=== PATIENT | female | born 1955 | race Caucasian/White ===

== ENCOUNTER 2016-08-26 12:33 | Inpatient (IN) | payer OTHER ==
[~2016-08-26] VITALS: Ht 166.4 cm; Wt 68.2 kg
[2016-08-31] MEDS ORDERED: ALPR.5 PO (12:18)
[2016-08-31] MEDS ORDERED: MULTTAB67 PO (12:18)
[2016-08-31] MEDS ORDERED: LISI-515 PO (12:18)
[2016-08-31] MEDS ORDERED: CALC1TAB12 PO (12:18)
[2016-08-31] MEDS ORDERED: HYDR-3366 PO (12:18)
[2016-08-31] MEDS ORDERED: VENL75TA PO (12:18)
[2016-08-31] MEDS ORDERED: GABA300C5 PO ×2 (12:18)
[2016-09-07] MEDS ORDERED: PHENYLEPH/NS 1000 MCG/10 ML SYR IV ONE (12:17)
[2016-09-07] MEDS ORDERED: LACTATED RINGER'S 1000 ML INJ 1,000 ML IV ONE (12:17)
[2016-09-07] MEDS ORDERED: NEOSTIGMINE 3 MG/3 ML SYR IV ONE (12:17)
[2016-09-07] MEDS ORDERED: ePHEDrine/NS 25 MG/5 ML SYR IV ONE (12:17)
[2016-09-07] MEDS ORDERED: PROPOFOL 200 MG/20 ML AMP IV ONE (12:17)
[2016-09-07 12:51] VITALS: BP 153/87; PULSE 90; RESP 16; TEMP 97.7; O2SAT 98
[2016-09-07] MEDS ORDERED: SODIUM CHLOR 0.9% 250 ML INJ 250 ML ONE (12:52)
[2016-09-07] MEDS ORDERED: VANCOMYCIN HCL 1000 MG VIAL ONE (12:52)
[2016-09-07] MEDS ORDERED: ceFAZolin 2 GM PREMIX 50 ML IV SCH (13:15)
[2016-09-07] MEDS: CHLORHEXIDINE GLUCONATE 4% SOLN 120 ML BTL TOP SCH (13:15)
[2016-09-07] MEDS ORDERED: GENTAMICIN SULFATE 80 MG/2 ML VIAL ONE (13:19)
[2016-09-07] MEDS: VANCOMYCIN 1000 MG/NS 250 ML (for <70 kg) IV SCH ×4 (13:25→13:26)
[2016-09-07] MEDS ORDERED: RESP: ALBUTEROL 2.5 MG/3 ML NEB (PRN) ONE (14:14)
[2016-09-07] MEDS ORDERED: MIDAZOLAM HCL 2 MG/2 ML VIAL ONE ×2 (14:20→16:58)
[2016-09-07] MEDS ORDERED: ACETAMINOPHEN 1000 MG/100 ML VIAL IV ONE (14:20)
[2016-09-07] MEDS ORDERED: FAMOTIDINE 20 MG/2 ML VIAL ONE (14:20)
[2016-09-07] MEDS ORDERED: fentaNYL CITRATE 250 MCG/5 ML AMP ONE ×3 (14:21→15:16)
[2016-09-07] MEDS ORDERED: ONDANSETRON HCL 4 MG/2 ML VIAL ONE (14:21)
[2016-09-07] MEDS ORDERED: HYDROmorphone HCL PF 2 MG/ML VIAL ONE (15:16)
[2016-09-07] MEDS ORDERED: KETAMINE HCL 500 MG/5 ML VIAL ONE (15:37)
[2016-09-07] MEDS: LACTATED RINGER'S 1000 ML INJ 1,000 ML IV SCH ×2 (16:26→21:14)
[2016-09-07] MEDS ORDERED: SODIUM CHLORIDE 0.9% FLUSH 5 ML FLUSH IVF PRN (16:30)
[2016-09-07] MEDS ORDERED: MORPHINE SULFATE 8 MG/ML INJ IM PRN (16:30)
[2016-09-07] MEDS ORDERED: ONDANSETRON HCL 4 MG/2 ML VIAL IVP PRN (16:30)
[2016-09-07] MEDS ORDERED: ALUMINUM/MAGNESIUM/SIMETH 30 ML CUP PO PRN (16:30)
[2016-09-07] MEDS ORDERED: ZOLPIDEM TARTRATE 5 MG TAB PO PRN (16:30)
[2016-09-07] MEDS ORDERED: Post-op Orders (for Pharmacy) MISC XX ONE (16:30)
[2016-09-07] MEDS ORDERED: ACETAMINOPHEN/HYDROcodone 325 MG/10 MG TAB PO PRN (16:30)
[2016-09-07] MEDS ORDERED: WALKER WHEELS/F1 MIS (16:32)
[2016-09-07] MEDS ORDERED: BEDSIDE COMMODE1 MI1 (16:32)
[2016-09-07] MEDS ORDERED: DO NOT ADM ANY ANTICOAGULANT DRUGS XX PRN (16:36)
--- NOTE | 2016-09-07 16:36 | HHI.PR ---
Immediate Post Op Note Procedure Date: Sep 07, 2016 Pre Op Diagnosis: R Hip Severe OA,Acet Dysplasia Post Op Diagnosis: Same Surgeon: Jalen Bernal MD Rn Training(s): Vanessa Hylton PA-C Procedure: R THR Complications: None Specimen(s) removed: None Estimated blood loss: 400 cc Anesthesia: General Drains: None Patient to: PACU Patient Condition: Good Implant/Devices: SEE IMPLANT LOG (if applicable) Date/Time of Procedure: SEE SURGICAL CARE RECORD Jalen Bernal MD Sep 07, 2016 16:36
[2016-09-07] MEDS: PCA - TOTAL MG MORPHINE DELIVERED PER SHIFT SCH ×2 (16:45→22:00)
[2016-09-07] MEDS ORDERED: NALOXONE HCL 0.4 MG/ML AMP IV PRN (16:45)
[2016-09-07] MEDS ORDERED: *morphine SULFATE 8 MG/ML PERIprocedure ONLY ONE (17:09)
--- NOTE | 2016-09-07 17:24 | RADRPT ---
EXAM DATE/TIME: 09/07/2016 16:34 [place] COMPARISON: No previous studies available for comparison. INDICATIONS : Post right hip arthroplasty MEDICAL HISTORY : None. SURGICAL HISTORY : None. ENCOUNTER: Initial ACUITY: 1 day PAIN SCORE: Non-responsive. LOCATION: Right Hip FINDINGS: A lateral view of the right hip with AP pelvis was obtained. Postsurgical changes following right hip replacement are noted. Acetabular and femoral components are satisfactorily aligned and well seated. There is no subacute fracture. There is less bony pelvis is intact. CONCLUSION: Satisfactory postoperative appearance of the right hip status post replacement. Nick Borja MD on September 07, 2016 at 17:21 Board Certified Radiologist. This report was verified electronically.
[2016-09-07] MEDS: MORPHINE SULFATE 30 MG/30 ML PCA IV SCH (17:26)
[2016-09-07 17:30] VITALS: BP 93/62; PULSE 104; RESP 16; TEMP 97.7; O2SAT 95
[2016-09-07 19:31] VITALS: O2SAT 96
[2016-09-07 20:15] VITALS: BP 92/64; PULSE 97; RESP 22; TEMP 96.2; O2SAT 96
[2016-09-07] MEDS: GABAPENTIN 300 MG CAP PO SCH (21:00)
[2016-09-07] MEDS: ALPRAZolam 0.5 MG TAB PO SCH (21:00)
[2016-09-07] MEDS: SODIUM CHLORIDE 0.9% FLUSH 5 ML FLUSH IVF SCH (21:00)
[2016-09-07] MEDS: VENLAFAXINE HCL 75 MG TAB PO SCH (21:00)
[2016-09-07] MEDS: LISINOPRIL 20 MG TAB PO SCH (21:00)
[2016-09-07] MEDS: ACETAMINOPHEN/HYDROcodone 325 MG/10 MG TAB PO PRN (21:15)
[2016-09-07 23:30] VITALS: BP 110/74; PULSE 91; RESP 23; TEMP 96.6; O2SAT 100
[2016-09-08] VITALS (7 sets, daily range): BP systolic 88–112; BP diastolic 51–69; PULSE 90–93; RESP 17–20; TEMP 96.1–97.4; O2SAT 92–98
[2016-09-08] MEDS: ACETAMINOPHEN/HYDROcodone 325 MG/10 MG TAB PO PRN ×5 (01:38→21:02)
[2016-09-08] MEDS ORDERED: MAGNESIUM HYDROXIDE SUSP 30 ML CUP PO PRN (02:15)
[2016-09-08] MEDS: MORPHINE SULFATE 30 MG/30 ML PCA IV SCH (04:25)
[2016-09-08] MEDS: PCA - TOTAL MG MORPHINE DELIVERED PER SHIFT SCH (06:00)
[2016-09-08 06:20] LABS: HEMATOCRIT 28.1 % (35.0-46.0); REVIEW FLAG FINAL
[2016-09-08 06:31] LABS: PROTHROMBIN TIME - PATIENT 10.7 SEC (9.8-11.6)
--- NOTE | 2016-09-08 07:31 | PD.ORT.PN ---
Subjective Subjective Remarks POD#1 R THR C/O post-op pain;patient has been on pain meds for >15 years No sob,chest pains Discussed with patient operative findings,answered multiple questions Objective Vitals Vital Signs Date Time Temp Pulse Resp B/P Pulse Ox O2 Delivery O2 Flow Rate FiO2 09/08/16 06:00 17 09/08/16 04:25 19 09/07/16 23:30 96.6 91 23 110/74 100 09/07/16 22:00 17 09/07/16 20:15 96.2 97 22 92/64 96 09/07/16 19:31 96 Nasal Cannula 2.00 09/07/16 17:30 97.7 104 16 93/62 95 09/07/16 17:26 20 09/07/16 17:00 109 19 139/67 97 Nasal Cannula 3 09/07/16 16:45 104 18 103/72 94 Nasal Cannula 3 09/07/16 16:30 121 14 150/93 97 Nasal Cannula 3 09/07/16 16:28 98.7 122 14 157/101 98 Nasal Cannula 3 09/07/16 12:51 97.7 90 16 153/87 98 I/O 09/07/16 09/07/16 09/07/16 09/08/16 09/08/16 09/08/16 06:59 14:59 22:59 06:59 14:59 22:59 Intake Total 1480 ml Output Total 400 ml Balance 1080 ml Intake Oral 480 ml Other 1000 ml Output Estimated Blood Loss 400 ml # Voids 0 # Bowel Movements 0 Result Diagram: 09/08/16 0545 Other Results Laboratory Tests Test 09/08/16 05:45 Prothrombin Time 10.7 SEC (9.8-11.6) Prothromb Time International 1.0 RATIO Ratio Objective Remarks N/V intact Neg musa's,no calf tenderness No LLD Assessment & Plan Assessment and Plan Ortho stable PT/Rehab Coumadin,TEDS for dvt prophylaxsis D/C home or SNF tomorrow Jalen Bernal MD Sep 08, 2016 07:31
--- NOTE | 2016-09-08 08:53 | PD.CONS ---
HPI Service [facility] Hospitalists Consult Requested By Dr. Jalen Bernal Reason for Consult Medical Management Primary Care Physician Reynaldo Addison MD Diagnoses: History of Present Illness Ms. Sandra is a pleasant 61 y/o female with HTN, anxiety, tobacco use, and osteoarthritis. Pt was admitted to [facility] [place] on 09/07/16 for right total hip arthroplasty with Dr. Jalen Bernal. [facility] Hospitalist team was consulted for help with medical management. Pt is seen post-operatively and complaints of hip pain. Her BP has been low this morning with systolic in the 80's. Her Lisinopril has been held. She is also having some urinary retention issues and has had to be straight cath'd twice since surgery with a large volume of urine with each catheterization. Review of Systems Constitutional: DENIES: Fever, Chills, Dizziness Respiratory: DENIES: Cough, Shortness of breath Cardiovascular: DENIES: Chest pain, Palpitations Gastrointestinal: DENIES: Abdominal pain, Nausea, Reflux, Vomiting Genitourinary: DENIES: Urinary incontinence, Dysuria Musculoskeletal: COMPLAINS OF: Joint pain Integumentary: DENIES: Rash Neurologic: DENIES: Headache Psychiatric: DENIES: Confusion Past Family Social History Past Medical History Hypertension Anxiety disorder Postmenopausal Hx of subdural hematoma Tobacco use Hx of alcohol use Osteoarthritis Past Surgical History Open reduction of left zygomatic arch and ORIF left tripod fracture with hardware placement on 05/14/[address] Lindquist Laceration repair of RUE -elbow area Reported Medications Calcium 500 +D (Calcium Carbonate-Cholecalciferol) 500-400 Mg-Unit Tab 2 Tab PO DAILY Multiple Vitamin 1 Tab 1 Tab PO DAILY Xanax (Alprazolam) 0.5 Mg Tab 0.5 Mg PO BID Effexor (Venlafaxine HCl) 75 Mg Tab 150 Mg PO BID Gabapentin 300 Mg Cap 600 Mg PO HS Gabapentin 300 Mg Cap 300 Mg PO EVERY MORNING Lisinopril 20 Mg Tab 20 Mg PO BID [place] (Hydrocodone-Acetaminophen) 10-325 Mg Tab 1 Tab PO Q6H Allergies: Coded Allergies: Naproxen (Verified Allergy, Severe, Anaphylaxis, 09/07/16) Family History Noncontributory Social History (+)Tobacco use, 1 pack per day smoker Hx of alcohol use, drinks "occasionally" Denies IV drug use Physical Exam Vital Signs Vital Signs Date Time Temp Pulse Resp B/P Pulse Ox O2 Delivery O2 Flow Rate FiO2 09/08/16 06:00 17 09/08/16 04:25 19 09/08/16 04:15 96.1 90 20 88/51 98 09/07/16 23:30 96.6 91 23 110/74 100 09/07/16 22:00 17 09/07/16 20:15 96.2 97 22 92/64 96 09/07/16 19:31 96 Nasal Cannula 2.00 09/07/16 17:30 97.7 104 16 93/62 95 09/07/16 17:26 20 09/07/16 17:00 109 19 139/67 97 Nasal Cannula 3 09/07/16 16:45 104 18 103/72 94 Nasal Cannula 3 09/07/16 16:30 121 14 150/93 97 Nasal Cannula 3 09/07/16 16:28 98.7 122 14 157/101 98 Nasal Cannula 3 09/07/16 12:51 97.7 90 16 153/87 98 Physical Exam GENERAL: This is a well-nourished, well-developed patient, in no apparent distress. HEENT: Atraumatic. Normocephalic. No temporal or scalp tenderness. No scleral icterus. Airway patent. NECK: Trachea midline, supple, nontender. CARDIO: Regular. RESP: CTA bilaterally. ABD: +BS, soft, non-tender, nondistended. EXT: Extremities without clubbing, cyanosis, or edema. NEURO: Awake and alert. Motor and sensory grossly within normal limits. Normal speech. Laboratory Laboratory Tests Test 09/07/16 09/08/16 12:45 05:45 Blood Type AB POSITIVE Antibody Screen NEGATIVE Crossmatch Leukocyte-Reduced Red Blood Cells Blood Bank Comment Hemoglobin 9.6 Hematocrit 28.1 Prothrombin Time 10.7 Prothromb Time International 1.0 Ratio Result Diagram: 09/08/16 0539 Assessment and Plan Problem List: (1) Osteoarthritis of right hip Status: Acute Plan: - Pt s/p right total hip arthroplasty on 09/07/[address] Bernal - Post-op pain control per Ortho - Pts BP is running low today likely related to pain meds and anesthesia - Hold Lisinopril for now. - Pt is on IVF - Monitor vitals - IS - PT daily - Pt having urinary retention issues. Place Sanchez cath to avoid repeated straight catheterizations. - Constipation precautions - DVT prophylaxis (2) Hypertension Status: Chronic Plan: - Hold Lisinopril (3) Anxiety disorder Status: Chronic Plan: - Cont. home meds Assessment and Plan Patient examined. Assessment and plan formulated with Annemarie Capellan PA-C. I agree with the above. Annemarie Capellan Sep 08, 2016 08:53 John Sunshine DO Sep 08, 2016 19:28
[2016-09-08] MEDS: SODIUM CHLORIDE 0.9% FLUSH 5 ML FLUSH IVF SCH ×2 (09:00→21:01)
[2016-09-08] MEDS: LISINOPRIL 20 MG TAB PO SCH ×2 (09:00→21:01)
[2016-09-08] MEDS: GABAPENTIN 300 MG CAP PO SCH ×2 (09:49→21:01)
[2016-09-08] MEDS: VENLAFAXINE HCL 75 MG TAB PO SCH ×2 (09:49→21:01)
[2016-09-08] MEDS: ALPRAZolam 0.5 MG TAB PO SCH ×2 (09:49→21:01)
[2016-09-08] MEDS: CHLORHEXIDINE GLUCONATE 4% SOLN 120 ML BTL TOP SCH (13:15)
[2016-09-08] MEDS ORDERED: WARFARIN SOD 5 MG TAB PO SCH (16:00)
[2016-09-08] MEDS: LACTATED RINGER'S 1000 ML INJ 1,000 ML IV SCH (17:26)
[2016-09-08] MEDS: DOCUSATE SODIUM 100 MG CAP PO SCH (21:01)
[2016-09-09] VITALS (7 sets, daily range): BP systolic 103–113; BP diastolic 63–71; PULSE 94–112; RESP 16–19; TEMP 96.3–97.5; O2SAT 92–100
[2016-09-09] MEDS: ACETAMINOPHEN/HYDROcodone 325 MG/10 MG TAB PO PRN ×5 (02:55→21:39)
[2016-09-09] MEDS: LACTATED RINGER'S 1000 ML INJ 1,000 ML IV SCH ×2 (04:09→18:26)
[2016-09-09 06:39] LABS: PROTHROMBIN TIME - PATIENT 10.7 SEC (9.8-11.6)
[2016-09-09 06:46] LABS: AUTOMATED NEUTROPHIL # 4.7 TH/MM3 (1.8-7.7); BASOPHIL % 0.5 % (0.0-2.0); EOSINOPHIL # 0.3 TH/MM3 (0-0.4); EOSINOPHIL % 4.2 % (0.0-4.0); HEMATOCRIT 26.6 % (35.0-46.0); HEMO FLAGS DIFF FINAL; LYMPH % 14.2 % (9.0-44.0); MEAN CELL VOLUME 94.8 FL (80.0-100.0); MEAN CORPUSCULAR HGB CONC 33.8 % (32.0-36.0); MONO % 12.7 % (0.0-8.0); NEUT % 68.4 % (16.0-70.0); PLATELET COUNT 225 TH/MM3 (150-450); RED CELL DISTRIBUTION WIDTH 13.1 % (11.6-17.2); WHITE BLOOD COUNT 6.9 TH/MM3 (4.0-11.0)
[2016-09-09 07:00] LABS: BICARBONATE 26.4 MEQ/L (21.0-32.0); MAGNESIUM 2.2 MG/DL (1.5-2.5)
--- NOTE | 2016-09-09 07:46 | PD.ORT.PN ---
Subjective Subjective Remarks pt doing better than yesterday but still having significant right hip pain would like to see if daughter can come stay with her since boyfriend has to go back to work Wednesday, if so she thinks she would be able to go home with [facility] tomorrow, if not will need to go to rehab Objective Vitals Vital Signs Date Time Temp Pulse Resp B/P Pulse Ox O2 Delivery O2 Flow Rate FiO2 09/09/16 00:05 96.3 112 19 107/63 97 09/08/16 20:05 97.4 91 18 112/69 93 09/08/16 19:31 96 21 09/08/16 16:00 97.0 91 17 93/63 93 09/08/16 12:00 97.4 93 18 97/60 92 09/08/16 10:10 95 Nasal Cannula 21 09/08/16 08:00 96.5 93 17 106/55 94 I/O 09/08/16 09/08/16 09/08/16 09/09/16 09/09/16 09/09/16 07:00 15:00 23:00 07:00 15:00 23:00 Intake Total 879 ml 693 ml 1160 ml 480 ml Output Total 450 ml 500 ml 550 ml 300 ml Balance 429 ml 193 ml 610 ml 180 ml Intake Oral 480 ml 960 ml 480 ml IV Total 399 ml 693 ml 200 ml Output Urine Total 450 ml 500 ml 550 ml 300 ml # Voids 0 # Bowel Movements 0 0 0 Result Diagram: 09/09/16 0517 09/09/16 0517 Other Results Laboratory Tests Test 09/09/16 05:17 Prothrombin Time 10.7 SEC (9.8-11.6) Prothromb Time International 1.0 RATIO Ratio Objective Remarks upon entering room, sleeping soundly right hip dressings dry and intact N/V intact Neg musa's,no calf tenderness No LLD Assessment & Plan Assessment and Plan POD #2 s/p R NACHO coumadin 3 mg now, 7.5 mg today at 1600 Ortho stable PT/Rehab Coumadin,TEDS for dvt prophylaxsis discharge tomorrow, either hhc or SNF depending on how patient is ambulating/ transferring Vanessa Hylton Sep 09, 2016 07:46
[2016-09-09] MEDS: VENLAFAXINE HCL 75 MG TAB PO SCH ×2 (08:29→20:56)
[2016-09-09] MEDS: DOCUSATE SODIUM 100 MG CAP PO SCH ×2 (08:29→20:56)
[2016-09-09] MEDS: LISINOPRIL 20 MG TAB PO SCH ×2 (08:29→20:57)
[2016-09-09] MEDS: GABAPENTIN 300 MG CAP PO SCH ×2 (08:34→20:58)
[2016-09-09] MEDS: ALPRAZolam 0.5 MG TAB PO SCH ×2 (09:00→20:57)
[2016-09-09] MEDS ORDERED: WARFARIN SOD 3 MG TAB PO ONE (09:30)
[2016-09-09] MEDS ORDERED: INFLUENZA VIRUS VACCINE (QUADRIVALENT) 0.5 ML SYR IM ONE (10:00)
[2016-09-09] MEDS: CHLORHEXIDINE GLUCONATE 4% SOLN 120 ML BTL TOP SCH (13:15)
[2016-09-09] MEDS ORDERED: WARFARIN SOD 7.5 MG TAB PO ONE (16:00)
[2016-09-09] MEDS: SODIUM CHLORIDE 0.9% FLUSH 5 ML FLUSH IVF SCH (20:58)
[2016-09-10] VITALS: BP 114/72; PULSE 114; RESP 17; TEMP 97.1; O2SAT 95
[2016-09-10] MEDS: ACETAMINOPHEN/HYDROcodone 325 MG/10 MG TAB PO PRN ×4 (01:58→14:52)
[2016-09-10] MEDS: LACTATED RINGER'S 1000 ML INJ 1,000 ML IV SCH (03:05)
[2016-09-10 04:00] VITALS: BP 98/59; PULSE 89; RESP 16; TEMP 96.6; O2SAT 95
--- NOTE | 2016-09-10 06:43 | MP ---
cc: APRIL XAVIER M.D., ALBERT W. M.D. DATE OF OPERATION September 07, 2016 PREOPERATIVE DIAGNOSIS Right hip severe osteoarthritis, acetabular dysplasia. POSTOPERATIVE DIAGNOSIS Right hip severe osteoarthritis, acetabular dysplasia. PROCEDURE Right total hip arthroplasty. SURGEON Mena Bernal MD CHILD CENTER ASSISTANT Vanessa Hylton PA-C ANESTHESIA General SPECIMEN None. ESTIMATED BLOOD LOSS 400 cc. COMPLICATIONS None. ANESTHESIA General. DRAINS None. CONDITION Stable. PLAN OF ACTIVITY As per orders. PROCEDURE My clinical education assistant Vanessa Hylton PA-C, was present for the entire surgical case. She was medically necessary for the entire case because of the complexity of the case and to facilitate the performance of the procedure. The WOOD DRILL OPERATOR at the back table not of the skill set for this case, to manipulate the instruments, e.g. the multiple different types of soft tissue tractors, trial implants and also permanent implants. The patient was brought into the operating room and had satisfactory general endotracheal anesthesia by the Department of Anesthesia. The patient was carefully placed in the lateral decubitus position. The right hip and lower extremity were prepped and draped in the usual sterile manner. A small posterior lateral exposure to the hip was made. All bleeders were individually coagulated. The fascia sheila and gluteus adalberto were incised in line with the skin incision. A Charnley retractor was placed into the wound to allow for better exposure. The short external rotators were removed as a group. Hip abductors were preserved. Capsulotomy was performed. The hip was dislocated posteriorly. The patient was found to have severe osteoarthritis, acetabular dysplasia and also moderate to moderately severe synovitis. Osteotomy was made on the neck at the appropriate level and exposure of the acetabulum was performed. The acetabular capsule was removed. The acetabular labrum was also sharply removed. Hemispherical reamers initially were used to deepen the cup, then widen the cup to accept a 52-mm Press-Fit and bicentric acetabular cup which fit very satisfactorily. The femur was then prepared using the Mowdoloc system. It was sequentially broached to a #11 broach, standard offset. Trial reduction was done with the +3 neck and the 28-mm ball. The hip was then reduced. The patient was found to have satisfactory limb lengths, satisfactory stability and satisfactory range of motion. The hip was then reduced again, was then dislocated again and all trial components were removed. The wound was irrigated with copious amounts of sterile saline antibiotic solution throughout the entire operative procedure. Using the M[employer]doloc System, a #11 standard offset stem was placed in anatomic position in approximately 15 degrees of anteversion with an excellent "fit and fill". A +3 neck was assembled onto the trunnion and a 28-mm ball which was a ceramic head was then also assembled. The hip was then reduced. The patient again was found to have satisfactory limb length, satisfactory stability and satisfactory range of motion. The short external rotators were repaired back to the greater trochanter with drill holes using #2 Ticron suture. The fascia sheila and gluteus adalberto was closed in line with the skin incision using #2 Ticron suture. The subcutaneous tissue was closed in layers using 0 Vicryl and 2-0 Vicryl, the skin was approximated with running subcuticular 2-0 nylon stitch. Sterile dressings were applied. The patient tolerated the procedure well and arrived in the recovery room in stable and satisfactory condition. MD YUDI Wseton/SSB /3:21 PM /5:22 AM
[2016-09-10 07:06] LABS: INTERNATIONAL NORMALIZED RATIO 1.2 RATIO; PROTHROMBIN TIME - PATIENT 13.2 SEC (9.8-11.6)
[2016-09-10 08:00] VITALS: BP 114/68; PULSE 95; RESP 17; TEMP 97.2; O2SAT 97
[2016-09-10] MEDS: ALPRAZolam 0.5 MG TAB PO SCH (08:45)
[2016-09-10] MEDS: DOCUSATE SODIUM 100 MG CAP PO SCH (08:45)
[2016-09-10] MEDS: VENLAFAXINE HCL 75 MG TAB PO SCH (08:45)
[2016-09-10] MEDS: GABAPENTIN 300 MG CAP PO SCH (08:45)
[2016-09-10] MEDS: LISINOPRIL 20 MG TAB PO SCH (08:45)
[2016-09-10] MEDS: SODIUM CHLORIDE 0.9% FLUSH 5 ML FLUSH IVF SCH (08:50)
--- NOTE | 2016-09-10 12:02 | HHI.FF ---
Face to Face Verification Diagnosis: (1) Osteoarthritis of right hip Physical Therapy Gait training, Transfer training, bed to chair Hip: Total hip, Protocol: Right, Posterior hip precautions Canvas Knee Splint: Other (at night for 4 weeks) Right LE Weight Bearing: WB as tolerated Left LE Weight Bearing: WB as tolerated Nursing RN Days per Week: 3 x Week(s): 2 RN: 3 days/week x 2 weeks Nursing: Dressing changes (clean with alcohol and apply dry sterile daily ) Additional Instructions Pt/INR q wednesday and , call/text results to Vanessa [phone] Goal INR 1.5-1.8 I have seen patient Jena Sandra on 09/10/16. My clinical findings support the need for the requested home health care services because: Deconditioned w/ increased weakness High risk of falls I certify that my clinical findings support that this patient is homebound because: Post-op weakness Unsteady gait/balance Vanessa Hylton Sep 10, 2016 12:02
[2016-09-10 12:11] VITALS: BP 115/74; PULSE 98; RESP 18; TEMP 95.6; O2SAT 96
[2016-09-10] MEDS ORDERED: COUM5TAB PO (12:32)
[2016-09-10] MEDS ORDERED: WARFARIN SOD 7.5 MG TAB PO ONE (13:00)
[2016-09-10] MEDS ORDERED: INFLUENZA VIRUS VACCINE (QUADRIVALENT) 0.5 ML SYR IM ONE (14:00)
[2016-09-10] MEDS ORDERED: WARFARIN SOD 5 MG TAB PO SCH (16:00)
[2016-09-11] MEDS ORDERED: WARFARIN SOD 5 MG TAB PO SCH (16:00)
--- NOTE | 2016-09-29 10:56 | HHI.DS ---
Discharge Summary Admission Date Sep 07, 2016 at 12:07 Discharge Date: Sep 10, 2016 Admitting Diagnosis Right hip osteoarthritis Diagnosis: (1) Osteoarthritis of right hip Diagnosis: Principal Procedures Right total hip arthroplasty Brief History This is a 61 year old female patient who presents with the following history. Patient has struggled with right hip pain for over five years. She has used a cane, tried numerous NSAIDs and analgesic medications. She states her pain has worsened and she is at the point that she struggles with activities of daily living. Imaging x-rays right hip show severe osteoarthritis, joint space narrowing PE at Discharge upon entering room, sleeping soundly right hip dressings dry and intact N/V intact Neg musa's,no calf tenderness No LLD Hospital Course Patient underwent satisfactory anaesthesia by the dept of anaesthesia. She underwent right total hip arthroplasty on date of admission. She did well following her procedure. She was started with full weight bearing ambulation on pod #1. She was treated with low dose coumadin night before surgery and will be continued to be treated with low dose coumadin for four weeks post- operatively. She was also treated with knee high TEDs and sequentials during her stay. She was seen and evaluated by medical during her stay. She progressed well and was discharged home with home health therapy and nursing on pod #3 in stable condition. Pt Condition on Discharge: Stable Discharge Disposition: Disch w/ Home Health Serv Discharge Instructions Diet Instructions: Coumadin (Warfarin) Diet Activities You Can Perform: Weight Bearing as Vanessa Winn Sep 29, 2016 10:56
== END 2016-09-10 17:08 | disposition home health service (06) | DRG 470 ==
LOC: HSDI 09-07 12:07 → N06B 09-07 17:37
PROVIDERS: ADMIT Orthopaedic Surgery Orthopaedic Surgery of the Spine; ATTEND Orthopaedic Surgery Orthopaedic Surgery of the Spine
PROC: 0SR903A Replacement of Right Hip Joint with Ceramic Synthetic Substitute, Uncemented, Open Approach (ICD-10-PCS; principal; 2016-09-07 14:24)
PROC: 0T9B70Z Drainage of Bladder with Drainage Device, Via Natural or Artificial Opening (ICD-10-PCS; 2016-09-08)
DX: M16.11 Unilateral primary osteoarthritis, right hip (principal); I95.9 Hypotension, unspecified; Q65.89 Other specified congenital deformities of hip; I10 Essential (primary) hypertension; M65.88 Other synovitis and tenosynovitis, other site; F41.9 Anxiety disorder, unspecified; F17.210 Nicotine dependence, cigarettes, uncomplicated; R33.9 Retention of urine, unspecified; Z23 Encounter for immunization
CPT/HCPCS: 73501; 80048; 83735; 85014; 85018; 85025; 85610; 86850; 86900; 86901; 86920; 90471; 90686; 94150; 94664; C1776; G0008; J0131; J0690; J1170; J1580; J2250; J2270; J2370; J2405; J2710; J3010; J3370; J7050; J7120; J7613; L1830; Q2038

== ENCOUNTER → 2016-08-31 | Outpatient (CLI) | payer OTHER ==
[~2016-08-31] MED LIST: ALPR.25 PO; ALPR.5 PO; BEDSIDE COMMODE1 MI1; CALC1TAB12 PO; COUM5TAB PO; GABA300C5 PO; HYDR-3366 PO; HYDR-3535 PO; LISI-360 PO; LISI-515 PO; MULTTAB67 PO; NAPR-729 PO; VENL75TA PO; WALKER WHEELS/F1 MIS
[2016-08-31 12:28] LABS: AUTOMATED NEUTROPHIL # 2.2 TH/MM3 (1.8-7.7); EOSINOPHIL # 0.1 TH/MM3 (0-0.4); EOSINOPHIL % 3.5 % (0.0-4.0); HEMATOCRIT 38.7 % (35.0-46.0); HEMO FLAGS DIFF FINAL; LYMPH % 23.8 % (9.0-44.0); LYMPHOCYTE # 0.9 TH/MM3 (1.0-4.8); MEAN CELL VOLUME 92.7 FL (80.0-100.0); MEAN CORPUSCULAR HEMOGLOBIN 31.2 PG (27.0-34.0); MEAN CORPUSCULAR HGB CONC 33.7 % (32.0-36.0); MONO % 11.1 % (0.0-8.0); NEUT % 60.6 % (16.0-70.0); PLATELET COUNT 300 TH/MM3 (150-450); RED BLOOD COUNT 4.17 MIL/MM3 (4.00-5.30); RED CELL DISTRIBUTION WIDTH 13.5 % (11.6-17.2); WHITE BLOOD COUNT 3.6 TH/MM3 (4.0-11.0)
[2016-08-31 12:50] LABS: BLOOD, URINE NEG (NEG); COMMENT (UR) CATH-CULT NOT IND; CULTURE IF INDICATED CATH CULTURE NOT IND; GLUCOSE,URINE NEG (NEG); KETONE, URINE NEG (NEG); NITRITE,URINE NEG (NEG); PH, URINE 6.5 (5.0-8.5); URINE COLOR YELLOW (YELLW/STRAW)
[2016-08-31 13:01] LABS: BICARBONATE 28.5 MEQ/L (21.0-32.0); POTASSIUM 3.9 MEQ/L (3.5-5.1)
--- NOTE | 2016-09-01 15:54 | EKG ---
Date Performed: 08/31/2016 Time Performed: 11:57:17 PTAGE: 61 years EKG: Sinus rhythm WITH OCCASIONAL VENTRICULAR PREMATURE COMPLEXES BORDERLINE ECG NO PREVIOUS TRACING DOCTOR: Narayan Loyd Interpretating Date/Time 09/01/2016 15:53:35
== END ==
LOC: CPRE 11:31
PROVIDERS: ATTEND Orthopaedic Surgery Orthopaedic Surgery of the Spine
DX: Z01.810 Encounter for preprocedural cardiovascular examination (principal); Z01.812 Encounter for preprocedural laboratory examination; Z01.818 Encounter for other preprocedural examination; M16.0 Bilateral primary osteoarthritis of hip
CPT/HCPCS: 36415; 80048; 81001; 85025; 93005